=== PATIENT | male | born 1950 | race Caucasian/White ===

== ENCOUNTER 2022-05-07 20:24 | Emergency (ER) | payer BC ==
[~2022-05-07] VITALS: Ht 193 cm; Wt 79.4 kg
[2022-05-07 21:10] VITALS: BP 125/70
[2022-05-07] MEDS ORDERED: KETOROLAC TROMETHAMINE INJ 60 MG/2 ML VIAL IM ONE (21:30)
[2022-05-07] MEDS ORDERED: LIDOCAINE 5% (PATCH) 1 EA PATCH TP SCH (21:30)
[2022-05-07] MEDS ORDERED: CYCLOBENZAPRINE 10 MG TABLET PO ONE (21:30)
[2022-05-07] MEDS ORDERED: KETOROLAC TROMETHAMINE 15 MG/ML VIAL ONE (22:04)
[2022-05-07] MEDS ORDERED: CYCLOBENZAPRINE 10 MG TABLET ONE (22:04)
[2022-05-07] MEDS ORDERED: CYCL5TAB PO (22:22)
[2022-05-07] MEDS ORDERED: NAPR-1164 PO (22:22)
[2022-05-07] MEDS ORDERED: LIDO30AD10 TP (22:22)
== END 2022-05-07 22:26 | disposition home or self-care (01) ==
LOC: ER 20:37
DX: S39.012A Strain of muscle, fascia and tendon of lower back, initial encounter (principal); M19.90 Unspecified osteoarthritis, unspecified site; G89.29 Other chronic pain; Z79.899 Other long term (current) drug therapy; X58.XXXA Exposure to other specified factors, initial encounter; Y93.89 Activity, other specified; Y92.89 Other specified places as the place of occurrence of the external cause; Y99.8 Other external cause status
CPT/HCPCS: 99283; 96372; J1885

== ENCOUNTER 2023-11-22 03:56 | Emergency (ER) | payer BC ==
[~2023-11-22] VITALS: Ht 195.6 cm; Wt 63.5 kg
[~2023-11-22 03:56] MED LIST: CYCL5TAB PO; LIDO30AD10 TP; NAPR-1164 PO
[2023-11-22 04:43] VITALS: TEMP 98.5
[2023-11-22 05:22] LABS: BASOPHILS % (AUTO) 0.7 % (0.0-2.0); EOSINOPHILS # (AUTO) 0.1 K/uL (0.0-0.7); EOSINOPHILS % (AUTO) 2.2 % (0.0-6.0); HEMATOCRIT 43 % (39-51); HEMOGLOBIN 14.9 g/dL (13.5-17.5); LYMPHOCYTES # (AUTO) 1.1 K/uL (0.8-4.8); LYMPHOCYTES % (AUTO) 16.2 % (20.0-44.0); MEAN CORPUSCULAR HEMOGLOBIN 33 PG (26.0-33.0); MEAN CORPUSCULAR HGB CONC 35 g/dl (31.0-36.0); MEAN CORPUSCULAR VOLUME 95 fL (80-96); MONOCYTES # (AUTO) 0.6 K/uL (0.1-1.30); MONOCYTES % (AUTO) 8.4 % (2.0-12.0); NEUTROPHILS # (AUTO) 4.9 K/uL (1.8-8.9); NEUTROPHILS % (AUTO) 72.5 % (43.0-81.0); PLATELET COUNT (AUTO) 271 K/uL (150-450); RED BLOOD CELL COUNT(AUTO) 4.54 MIL/uL (4.5-6.0); RED CELL DISTRIBUTION WIDTH 12.8 % (11.5-15.0); WHITE BLOOD COUNT (AUTO) 6.7 K/uL (4.3-11.0)
[2023-11-22] MEDS ORDERED: AZIT250T PO (05:58)
[2023-11-22] MEDS ORDERED: ALBU8.5H8 INH (05:58)
[2023-11-22 06:27] VITALS: BP 133/84; O2SAT 98
[2023-11-22 06:40] LABS: CREATININE 0.9 mg/dL (0.6-1.3); POTASSIUM 3.6 mmol/L (3.5-5.1)
[2023-11-22 06:52] LABS: ALBUMIN 3.7 g/dL (3.4-5.0); BILIRUBIN,TOTAL 1.4 mg/dL (0.2-1.0); TOTAL PROTEIN, SERUM 7.8 g/dL (6.4-8.2)
== END 2023-11-22 06:27 | disposition home or self-care (01) ==
LOC: ER 04:01
DX: J40 Bronchitis, not specified as acute or chronic (principal); G89.29 Other chronic pain; Z79.899 Other long term (current) drug therapy
CPT/HCPCS: 36415; 71045-TC; 80053-TC; 83880; 84484-TC; 85025-TC